=== PATIENT | male | born 1995 | race Caucasian/White ===

== ENCOUNTER 2022-03-04 12:03 | Emergency (ER) | payer OTHER ==
[2022-03-04 12:38] VITALS: BP 111/68; PULSE 72; TEMP 98.2; BMI 34.4
== END 2022-03-04 12:42 | disposition home or self-care (01) ==
LOC: EDSEX 12:03 → FER 12:03
DX: S39.012A Strain of muscle, fascia and tendon of lower back, initial encounter (principal); X50.0XXA Overexertion from strenuous movement or load, initial encounter
CPT/HCPCS: 99281-25